=== PATIENT | female | born 1970 | race African-American/Black ===

== ENCOUNTER 2017-02-05 14:35 | Emergency (ER) | payer SELFPAY ==
[~2017-02-05] VITALS: Ht 165.1 cm; Wt 89.0 kg
[~2017-02-05 14:35] MED LIST: ALEVE220 M2 PO; AMOXICILLIN500 MG PO; EXCEDRIN EXTRA1 EACH PO; HYDROCODON-ACE1 EAC7 PO; NOHOMEMEDS; PRENATAL1 EACH PO; TYLENOL EXTRA500 MG PO; TYLENOL WITH C1 EACH PO
[2017-02-05 15:26] LABS: HEMATOCRIT 43.6 % (36.0-46.0); MCH 30.4 PG (29.0-34.0); MCHC 32.3 G/DL (30.0-36.0); RBC DIS.WIDTH-CV 12.9 % (11.8-14.6); RBC DIS.WIDTH-SD 44.7 % (39-53); RED BLOOD COUNT 4.64 M/uL (3.80-5.20); WHITE BLOOD COUNT 3.7 K/uL (4.1-10.2)
[2017-02-05 15:36] LABS: CHLORIDE 108 mEq/L (99-109); POTASSIUM 4.2 mEq/L (3.7-5.4); SODIUM 139 mEq/L (136-147)
[2017-02-05 15:38] LABS: GLUCOSE 82 mg/dL (70-99)
[2017-02-05 15:39] LABS: ANION GAP 8 MEQ/L (2-14)
[2017-02-05 15:42] LABS: GFR ESTIMATE (CALCULATED) > 59 mL/min/; UREA NITROGEN (BUN) 12 mg/dL (9-23)
[2017-02-05 15:49] LABS: TROP-I INTERPRETATION NEGATIVE; TROPONIN-I < 0.01 ng/mL (0.0-0.30)
[2017-02-05] MEDS ORDERED: NORCO 7.5/321 TABLET PO (16:14)
[2017-02-05] MEDS ORDERED: ACYCLOVIR800 MG PO (16:14)
[2017-02-05 16:35] VITALS: BP 126/83
[2017-02-05 16:41] LABS: HEMATOLOGY COMMENT 1 SN; MEAN PLAT.VOLUME 10.4 uM^3 (9.5-12.4); PLAT.SUFFICIENCY ADEQUATE; PLATELET COUNT 215 K/uL (156-360)
== END 2017-02-05 16:36 | disposition home or self-care (01) ==
LOC: EME 14:35
PROVIDERS: Nurse Practitioner Family
DX: B02.9 Zoster without complications (principal); R07.9 Chest pain, unspecified; F17.200 Nicotine dependence, unspecified, uncomplicated
CPT/HCPCS: 71020; 80048; 84484; 85027; 93005; 99281; 99284